=== PATIENT | female | born 1930 | race Caucasian/White ===

== ENCOUNTER 2018-02-01 16:05 | Emergency (ER) | payer OTHER ==
[~2018-02-01] VITALS: Ht 157.5 cm; Wt 52.2 kg
[~2018-02-01 16:05] MED LIST: ACETAMINOPHEN325 M1 PO; ARICEPT10 MG PO; ASPIRIN81 M2 PO; ATENOLOL 50 MG50 M1 PO; COZAAR 50 MG TA50 M1 PO; CYMBALTA60 MG PO; DESYREL50 MG PO; HYDROCODON-ACE1 EAC7 PO; MULTIVITAMINS1 EAC7 PO; OYSTER SHELL C1 EA14 PO; VITAMIN D31000 UNI2 PO
[2018-02-01 18:14] LABS: ABSOLUTE NEUTROPHILS 4.8 thou/uL (1.4-8.2); BASOPHILS 0.3 % (0.0-2.0); EOSINOPHILS 4.4 % (0.0-3.0); HEMATOCRIT 32.2 % (37.0-47.0); HEMOGLOBIN 10.4 gm/dL (12.0-15.0); LYMPHOCYTES 30.4 % (24.0-44.0); MCH 26.7 pg (26.0-34.0); MCHC 32.3 g/dL (28.0-37.0); MCV 82.5 fL (80.0-100.0); MONOCYTES 10.9 % (1.0-8.0); PLATELET COUNT 259 thou/uL (150-400); RDW 17.6 % (10.5-14.5); WBC 8.9 thou/uL (4.0-11.0)
[2018-02-01 18:24] LABS: CALCIUM 10.3 mg/dL (8.5-10.1); CREATININE 1.3 mg/dL (0.6-1.0); POTASSIUM 4.3 mmol/L (3.5-5.1)
[2018-02-01 18:46] LABS: ANISOCYTOSIS 1+; LARGE PLATELETS OCCASIONAL
[2018-02-01] MEDS ORDERED: ARIMIDEX1 MG PO (18:51)
[2018-02-01] MEDS ORDERED: BUSPIRONE HCL10 MG PO (18:53)
[2018-02-01] MEDS ORDERED: CEPACOL SORE T1 EAC7 PO (18:53)
[2018-02-01] MEDS ORDERED: MUCINEX600 MG PO (18:54)
[2018-02-01] MEDS ORDERED: CLARITIN10 MG PO (18:54)
[2018-02-01] MEDS ORDERED: DEPAKOTE SPRIN125 MG PO (18:54)
[2018-02-01] MEDS ORDERED: MI ACID LIQUID355 ML PO (18:55)
[2018-02-01] MEDS ORDERED: MELATONIN1 MG PO (18:55)
[2018-02-01] MEDS ORDERED: REMERON15 MG PO (18:56)
[2018-02-01] MEDS ORDERED: ZANTAC 150MG T150 MG PO (18:56)
== END 2018-02-01 20:30 | disposition home or self-care (01) ==
LOC: ER 16:05
PROVIDERS: Physician Assistant
DX: R22.2 Localized swelling, mass and lump, trunk (principal); I10 Essential (primary) hypertension; F32.9 Major depressive disorder, single episode, unspecified; F03.90 Unspecified dementia, unspecified severity, without behavioral disturbance, psychotic disturbance, mood disturbance, and anxiety; F41.9 Anxiety disorder, unspecified; Z85.3 Personal history of malignant neoplasm of breast; Z90.12 Acquired absence of left breast and nipple; Z87.891 Personal history of nicotine dependence; Z88.8 Allergy status to other drugs, medicaments and biological substances